=== PATIENT | female | born 1955 ===

== ENCOUNTER 2017-04-23 21:28 | Observation (INO) | payer MEDICAID ==
[2017-04-23 21:47] VITALS: BMI 43.7
[2017-04-23] MEDS ORDERED: Sodium Chloride 0.9% 1,000 ML IV STA (21:59)
--- NOTE | 2017-04-23 22:05 | ED PDOC ---
Arrival/HPI - General Chief Complaint: Back Pain Time Seen by Provider: 04/23/17 21:47 Historian: Patient - History of Present Illness Narrative History of Present Illness (Text): 04/23/17 21:59 Nola Castaneda is a 61 year old female, with a history of CAD, hypertension, uterine fibroids and hyperthyroidism, presents to the emergency department for evaluation of 3 day duration of abdominal pain associated with diarrhea and bilateral flank pain. Also reports of subjective feve and burning sensation while urinating. States that left abdominal and flank pain is greater than right side. Denies any vomiting. Denies headache, dizziness, chest pain, shortness of breath, or any other complaints at this time. PMD: Time/Duration: < week (3 day ) Symptom Onset: Gradual Symptom Course: Worsening Severity Level: Mild Activities at Onset: Light Context: Home Past Medical History - Provider Review Nursing Documentation Reviewed: Yes - Infectious Disease Hx of Infectious Diseases: None - Tetanus Immunization Tetanus Immunization: Unknown - Cardiac Hx Cardiac Disorders: Yes Hx Hypertension: Yes - Pulmonary Hx Respiratory Disorders: No - Neurological Hx Neurological Disorder: No - HEENT Hx HEENT Disorder: No - Renal Hx Renal Disorder: No - Endocrine/Metabolic Hx Endocrine Disorders: Yes Hx Hyperthyroidism: Yes - Hematological/Oncological Hx Blood Disorders: No - Integumentary Hx Dermatological Disorder: No - Musculoskeletal/Rheumatological Hx Musculoskeletal Disorders: No - Gastrointestinal Hx Gastrointestinal Disorders: No - Genitourinary/Gynecological Hx Genitourinary Disorders: No - Psychiatric Hx Psychophysiologic Disorder: Yes Hx Depression: Yes Hx Emotional Abuse: No Hx Physical Abuse: No Hx Substance Use: No - Surgical History Hx Tubal Ligation: Yes - Suicidal Assessment Feels Threatened In Home Enviroment: No Family/Social History - Physician Review Nursing Documentation Reviewed: Yes Family/Social History: No Known Family HX Smoking Status: Never Smoked Hx Alcohol Use: Yes Hx Substance Use: No Hx Substance Use Treatment: No Allergies/Home Meds Allergies/Adverse Reactions: Allergies No Known Allergies Allergy (Verified 02/21/16 09:11) Home Medications: Home Meds Medication Instructions Recorded Confirmed Gabapentin [Neurontin] 300 mg PO BID 04/23/17 04/23/17 Levothyroxine [Synthroid] 25 mcg PO DAILY 04/23/17 04/23/17 Lisinopril/Hydrochlorothiazide 1 tab PO DAILY 04/23/17 04/23/17 [Lisinopril-Hydrochlorothiazide 25 mg-20 mg] Multivitamin Therapeutic Tab 1 tab PO DAILY 04/23/17 04/23/17 [Thera Tab] Phentermine HCl [Phentermine HCl] 30 mg PO DAILY 04/23/17 04/23/17 Sertraline [Zoloft] 50 mg PO DAILY 04/23/17 04/23/17 Review of Systems - Physician Review All systems were reviewed & negative as marked: Yes - Review of Systems Constitutional: Fevers Respiratory: Normal. absent: SOB, Cough, Sputum Cardiovascular: absent: Chest Pain, Palpitations Gastrointestinal: Abdominal Pain (L>R), Diarrhea. absent: Nausea, Vomiting, Appetite Changes Genitourinary Female: Dysuria (burning sensation while urinating ). absent: Hematuria Musculoskeletal: Back Pain (b/l flank pain L>R ) Neurological: Normal. absent: Headache, Dizziness Psychiatric: Normal Physical Exam Vital Signs Reviewed: Yes Vital Signs Temp Pulse Resp BP Pulse Ox 04/23/17 23:54 117 H 16 120/53 L 97 04/23/17 21:47 100.1 F H 134 H 20 103/65 96 Temperature: Febrile Blood Pressure: Normal Pulse: Tachycardic Respiratory Rate: Normal Appearance: Positive for: Well-Appearing, Non-Toxic, Comfortable Pain Distress: None Mental Status: Positive for: Alert and Oriented X 3 - Systems Exam Head: Present: Atraumatic, Normocephalic Pupils: Present: PERRL Conjunctiva: Present: Normal Mouth: Present: Moist Mucous Membranes Respiratory/Chest: Present: Clear to Auscultation, Good Air Exchange. No: Respiratory Distress, Accessory Muscle Use Cardiovascular: Present: Normal S1, S2, Tachycardic. No: Murmurs Abdomen: Present: Tenderness (suprapubic tenderness, Left abd > right abd ), Normal Bowel Sounds. No: Distention, Peritoneal Signs, Rebound, Guarding Back: Present: CVA Tenderness (Left CVA ). No: Midline Tenderness, Paraspinal Tenderness Upper Extremity: Present: Normal Inspection. No: Cyanosis, Edema Lower Extremity: Present: Normal Inspection. No: Edema Neurological: Present: GCS=15, CN II-XII Intact, Speech Normal Skin: Present: Warm, Dry, Normal Color. No: Rashes Psychiatric: Present: Alert, Oriented x 3, Normal Insight, Normal Concentration Medical Decision Making ED Course and Treatment: 04/23/17 22:07 Impression: A 61 year old female who presents to emergency department for abdominal pain and flank pain associated with dysuria for past 3 days. Differential Diagnosis include but are not limited to: diverticulitis vs. appendicitis vs. pyelo Plan: -- Labs -- Toradol -- IV fluids -- Urine culture -- Urinalysis -- Reassess and disposition Progress Notes: 04/23/17 22:32 04/23/17 23:11 Labs resulted and show normal wbc, lactate and creatinine. However ua shows blood, large leukocytes and tntc wbc. Concerning for infected stone. Ordered ct abd/pelvis without contrast to evaluate further. 04/24/17 00:15 CT abdomen pelvis results reviewed, read by Isadora Pineda MD: IMPRESSION: Mild left-sided hydroureteronephrosis extending to the left ureterovesicular junction where a 2 mm stone is suspected. 04/24/17 00:23 Patient persistently tachycardic and febrile on arrival. Still in pain. Presentation consistent with infected stone. Dr. Drew requesting hospitalist admission. Will transfer to [facility] observation with urology on consult. - Lab Interpretations Lab Results: 04/23/17 22:30 04/23/17 22:30 Lab Results 04/23/17 22:30: Sodium 140, Chloride 101, Potassium 3.9, Carbon Dioxide 31, Anion Gap 12, BUN 20, Creatinine 1.0, Est GFR ( Amer) > 60, Est GFR (Non- Af Amer) 57, Random Glucose 119 H, Calcium 9.3, Total Bilirubin 0.7, AST 21, ALT 31, Alkaline Phosphatase 112, Total Protein 7.0, Albumin 3.8, Globulin 3.2, Albumin/Globulin Ratio 1.2, Lipase 57 04/23/17 22:30: pO2 47, VBG pH 7.39, VBG pCO2 57.0, VBG HCO3 34.5 H, VBG Total CO2 36.2 H, VBG O2 Sat (Calc) 85.1 H, VBG Base Excess 7.6 H, VBG Potassium 4.0, Sodium 141.0, Chloride 106.0, Glucose 129 H, Lactate 1.3, FiO2 21.0, Venous Blood Potassium 4.0 04/23/17 22:30: Urine Color Yellow, Urine Appearance Slight-cloudy, Urine pH 6.5 , Ur Specific [place] 1.010, Urine Protein Trace H, Urine Glucose (UA) Negative , Urine Ketones Negative, Urine Blood Moderate H, Urine Nitrate Negative, Urine Bilirubin Negative, Urine Urobilinogen 0.2, Ur Leukocyte Esterase Large H, Urine RBC 10 - 15, Urine WBC Tntc, Ur Epithelial Cells 4 - 5, Urine Bacteria Few 04/23/17 22:30: WBC 7.0, RBC 3.52, Hgb 11.0 L, Hct 32.3 L, MCV 91.8, MCH 31.3, MCHC 34.1, RDW 13.2, Plt Count 167, MPV 11.2 H, Gran % 87.0 H, Lymph % (Auto) 8.2 L, [place] % (Auto) 3.0, Eos % (Auto) 1.7, Baso % (Auto) 0.1, Gran # 6.08, Lymph # 0.6 L, [place] # 0.2, Eos # 0.1, Baso # 0.01 I have reviewed the lab results: Yes - RAD Interpretation Narrative RAD Interpretations (Text): EXAM: CT Abdomen and Pelvis Without Intravenous Contrast, read by Isadora Pineda MD FINDINGS: Lower thorax: The bilateral lung bases are clear. ABDOMEN: Liver: No acute findings Gallbladder and bile ducts: No acute finding. No calcified stones. No intra- extrahepatic biliary ductal dilation. Pancreas: Limited evaluation secondary to the lack of intravenous contrast. Spleen: No acute findings. Adrenals: No acute findings. Kidneys and ureters: Mild left-sided hydroureteronephrosis extending to the left ureterovesicular junction where a 2 mm stone is suspected. PELVIS: Bladder: No acute findings. Reproductive: No acute findings. Appendix: The appendix is of normal-caliber (series 2, image 1:15) ABDOMEN and PELVIS: Stomach and bowel: No acute findings. Peritoneum: No acute findings. Lymph nodes: Limited evaluation without intravenous contrast. Vasculature: No aortic aneurysm. Bones: No acute fracture. IMPRESSION: Mild left-sided hydroureteronephrosis extending to the left ureterovesicular junction where a 2 mm stone is suspected. Radiology Orders: 04/23/17 23:08 ABD & PELVIS W/O PO OR IV CONT [CT] [employer]: Radiologist - Medication Orders Current Medication Orders: Levofloxacin/Dextrose (Levaquin 750mg) 750 mg in 150 mls @ 100 mls/hr IVPB STAT STA Stop: 04/24/17 00:42 Last Admin: 04/23/17 23:24 Dose: 100 mls/hr Discontinued Medications Sodium Chloride (Sodium Chloride 0.9%) 1,000 mls @ 999 mls/hr IV .Q1H1M STA Stop: 04/23/17 22:59 Last Admin: 04/23/17 22:42 Dose: 999 mls/hr Ketorolac Tromethamine (Toradol) 30 mg IVP STAT STA Stop: 04/23/17 22:00 Last Admin: 04/23/17 22:42 Dose: 30 mg Morphine Sulfate (Morphine) 4 mg IVP STAT STA Stop: 04/24/17 00:06 - Scribe Statement The provider has reviewed the documentation as recorded by the Scribe Nia Peña Provider Attestation: khalif Provider Scribe Attestation: All medical record entries made by the Scribe were at my direction and personally dictated by me. I have reviewed the chart and agree that the record accurately reflects my personal performance of the history, physical exam, medical decision making, and the department course for this patient. I have also personally directed, reviewed, and agree with the discharge instructions and disposition. Disposition/Present on Arrival - Present on Arrival Any Indicators Present on Arrival: No History of DVT/PE: No History of Uncontrolled Diabetes: No Urinary Catheter: No History of Decub. Ulcer: No History Surgical Site Infection Following: None - Disposition Have Diagnosis and Disposition been Completed?: Yes Diagnosis: Hydroureteronephrosis Disposition: HOSPITALIZED Disposition Time: 00:24 Patient Plan: Observation Patient Problems: Current Active Problems Problem Status Onset Hydroureteronephrosis Acute Condition: FAIR Referrals: Pamela Garcia DO [Primary Care Provider] - Follow up with primary
[2017-04-23 22:41] LABS: ADD MANUAL DIFF? NO
[2017-04-23 22:51] LABS: PH,URINE 6.5 (4.7-8.0); URINE BILIRUBIN NEGATIVE (NEGATIVE); URINE BLOOD MODERATE (NEGATIVE); URINE GLUCOSE (UA) NEGATIVE (NEGATIVE); URINE KETONE NEGATIVE (NEGATIVE); URINE LEUKOCYTE ESTERASE LARGE Leu/uL (NEGATIVE); URINE PROTEIN TRACE mg/dL (<30 mg/dL); URINE UROBILINOGEN 0.2 E.U./dL (<1 E.U./dL)
[2017-04-23 22:52] LABS: URINE APPEARANCE SLIGHT-CLOUDY (CLEAR); URINE COLOR YELLOW (YELLOW)
[2017-04-23 22:53] LABS: BASO # 0.01 K/mm3 (0.0-2.0); BASO % 0.1 % (0.0-3.0); EOS # 0.1 (0.0-0.7); EOS % 1.7 % (1.5-5.0); GRAN # 6.08 (1.4-6.5); HEMATOCRIT 32.3 % (36.0-48.0); LYMPH # 0.6 (1.2-3.4); LYMPH % 8.2 % (22.0-35.0); MEAN CELL VOLUME 91.8 fL (80.0-105.0); MEAN CORPUSCULAR HEMOGLOBIN 31.3 pg (25.0-35.0); MEAN CORPUSCULAR HGB CONC 34.1 g/dl (31.0-37.0); MEAN PLATELET VOLUME 11.2 fl (7.0-11.0); MONO # 0.2 (0.1-0.6); PLATELET COUNT 167 10^3/uL (120.0-450.0); RED CELL DISTRIBUTION WIDTH 13.2 % (11.5-14.5)
[2017-04-23 22:56] LABS: URINE WBC TNTC /hpf (0-6); VENOUS BLOOD GAS BASE EXCESS 7.6 mmol/L (0.0-2.0); VENOUS BLOOD PH 7.39 (7.32-7.43)
[2017-04-23 22:57] LABS: URINE BACTERIA FEW (NEG)
[2017-04-23 23:02] LABS: ALB/GLOB RATIO 1.2 (1.1-1.8); ALKALINE PHOSPHATASE 112 U/L (38-133); ALT/SGPT 31 U/L (7-56); AST/SGOT 21 U/L (15-39); BILIRUBIN,TOTAL 0.7 mg/dL (0.2-1.3); BLOOD UREA NITROGEN 20 mg/dL (7-21); CALCIUM 9.3 mg/dL (8.4-10.5); CARBON DIOXIDE 31 mmol/L (21-33); CHLORIDE 101 mmol/L (98-107); GFR AFRICAN-AMERICAN > 60; GLUCOSE,RANDOM 119 mg/dL (70-110); LIPASE 57 U/L (23-300); POTASSIUM 3.9 mmol/L (3.6-5.0); SODIUM 140 mmol/L (132-148)
[2017-04-23] MEDS ORDERED: levoFLOXacin 750 mg in D5W 750 MG/150 ML BAG IVPB STA (23:13)
[2017-04-24] MEDS ORDERED: Morphine 4 mg/ml ISec IVP STA (00:05)
--- NOTE | 2017-04-24 00:12 | CT ---
EXAM: CT Abdomen and Pelvis Without Intravenous Contrast CLINICAL HISTORY: 61 years old, female; Pain; Abdominal pain; Localized; Left lower quadrant (llq); Prior surgery; Surgery type: Tubal ligation; Additional info: Hematuria, flank pain TECHNIQUE: Axial computed tomography images of the abdomen and pelvis without intravenous contrast. This CT exam was performed using one or more of the following dose reduction techniques: automated exposure control, adjustment of the mA and/or kV according to patient size, and/or use of iterative reconstruction technique. Coronal and sagittal reformatted images were created and reviewed. COMPARISON: No relevant prior studies available. FINDINGS: Lower thorax: The bilateral lung bases are clear. ABDOMEN: Liver: No acute findings Gallbladder and bile ducts: No acute finding. No calcified stones. No intra-extrahepatic biliary ductal dilation. Pancreas: Limited evaluation secondary to the lack of intravenous contrast. Spleen: No acute findings. Adrenals: No acute findings. Kidneys and ureters: Mild left-sided hydroureteronephrosis extending to the left ureterovesicular junction where a 2 mm stone is suspected. PELVIS: Bladder: No acute findings. Reproductive: No acute findings. Appendix: The appendix is of normal-caliber (series 2, image 1:15) ABDOMEN and PELVIS: Stomach and bowel: No acute findings. Peritoneum: No acute findings. Lymph nodes: Limited evaluation without intravenous contrast. Vasculature: No aortic aneurysm. Bones: No acute fracture. IMPRESSION: Mild left-sided hydroureteronephrosis extending to the left ureterovesicular junction where a 2 mm stone is suspected.
[2017-04-24] MEDS ORDERED: Sodium Chloride 0.9% 1,000 ML IV SCH (01:30)
--- NOTE | 2017-04-24 02:07 | CP.PCM.HP ---
<Nikkie Woo - Last Filed: 04/24/17 05:58> History of Present Illness - History of Present Illness History of Present Illness: PGY-1 H&P 61 yo female with PMH of CAD, HTN, hyperthyroidism presented to ED with abdominal and flank pain for the past 3 days. Patient states that the pain has become progressivly worse. The abdominal pain is located hypogastric region. The flank pain is greater on the left then the right, she has never had similar pain before. She took tylenol for the pain but did not help. She states that she has pain with urination but denies hematuria. She reports subjective fever at home, general weakness, fatigue and nausea without vomiting. She has cough with clear phlegm production due to her HTN medication. She reports chronic back pain. Denies chest pain, sob, dizziness. PMH: CAD, HTN, hyperthyroidism PSH: hysterectomy social hx: denies smoking, alcohol use, illicit drug use fam hx: father- stroke allergy: NKDA PMD: Dr. Santiago Present on Admission - Present on Admission Any Indicators Present on Admission: No Review of Systems - Constitutional Constitutional: Fatigue, Fever, Headache. absent: Chills - EENT Nose/Mouth/Throat: absent: Nasal Congestion, Nasal Discharge, Sore Throat - Cardiovascular Cardiovascular: absent: Chest Pain, Chest Pain with Activity, Dyspnea, Syncope - Respiratory Respiratory: Cough. absent: Dyspnea, Hemoptysis - Gastrointestinal Gastrointestinal: Abdominal Pain, Constipation, Nausea. absent: Diarrhea, Vomiting - Genitourinary Genitourinary: Dysuria, Flank Pain. absent: Hematuria - Musculoskeletal Musculoskeletal: absent: Arthralgias, Myalgias, Numbness, Tingling - Integumentary Integumentary: absent: Rash, Skin Ulcer, Swelling, Wounds - Neurological Neurological: Headaches, Weakness. absent: Dizziness, Numbness, Focal Weakness , Syncope, Tingling - Hematologic/Lymphatic Hematologic: absent: Easy Bleeding, Easy Bruising Past Patient History - Infectious Disease Hx of Infectious Diseases: None - Tetanus Immunizations Tetanus Immunization: Unknown - Past Social History Smoking Status: Never Smoked Alcohol: None Drugs: Denies - CARDIAC Hx Cardiac Disorders: Yes Hx Hypertension: Yes - PULMONARY Hx Respiratory Disorders: No - NEUROLOGICAL Hx Neurological Disorder: No - HEENT Hx HEENT Problems: No - RENAL Hx Chronic Kidney Disease: No - ENDOCRINE/METABOLIC Hx Endocrine Disorders: Yes Hx Hyperthyroidism: Yes - HEMATOLOGICAL/ONCOLOGICAL Hx Blood Disorders: No - INTEGUMENTARY Hx Dermatological Problems: No - MUSCULOSKELETAL/RHEUMATOLOGICAL Hx Musculoskeletal Disorders: No - GASTROINTESTINAL Hx Gastrointestinal Disorders: No - GENITOURINARY/GYNECOLOGICAL Hx Genitourinary Disorders: No - PSYCHIATRIC Hx Psychophysiologic Disorder: Yes Hx Depression: Yes Hx Emotional Abuse: No Hx Physical Abuse: No Hx Substance Use: No - SURGICAL HISTORY Hx Tubal Ligation: Yes Meds Allergies/Adverse Reactions: Allergies Allergy/AdvReac Type Severity Reaction Status Date / Time No Known Allergies Allergy Verified 02/21/16 09:11 Physical Exam - Constitutional Appears: Well, No Acute Distress - Head Exam Head Exam: ATRAUMATIC, NORMOCEPHALIC - Eye Exam Eye Exam: EOMI, Normal appearance - ENT Exam ENT Exam: Mucous Membranes Moist - Respiratory Exam Respiratory Exam: Clear to Auscultation Bilateral, NORMAL BREATHING PATTERN. absent: Decreased Breath Sounds, Rales, Rhonchi, Wheezes, Respiratory Distress - Cardiovascular Exam Cardiovascular Exam: Tachycardia, REGULAR RHYTHM, +S1, +S2. absent: Diastolic murmur, Systolic Murmur - GI/Abdominal Exam GI & Abdominal Exam: Normal Bowel Sounds, Soft, Tenderness. absent: Distended, Firm, Guarding - Back Exam Back exam: NORMAL INSPECTION. absent: CVA tenderness (L), CVA tenderness (R), paraspinal tenderness, vertebral tenderness - Neurological Exam Neurological exam: Alert, Oriented x3 - Skin Skin Exam: Dry, Intact, Normal Color, Warm Results - Vital Signs Recent Vital Signs: Last Vital Signs Temp 99.6 F 04/24/17 01:31 Pulse 108 H 04/24/17 01:31 Resp 17 04/24/17 01:31 BP 100/51 L 04/24/17 01:31 Pulse Ox 96 04/24/17 01:31 - Labs Result Diagrams: 04/23/17 22:30 04/23/17 22:30 Assessment & Plan - Assessment and Plan (Free Text) Assessment: 61 yo female with PMH of CAD, HTN, hyperthyroidism admitted for hydrourteronephrosis and UTI. CT abd/pel showed mild left sided hydroureteronephrosis with suspected 2mm stone. Plan: 1. hydrourteronephrosis and UTI - CT abd/pel showed mild left sided hydroureteronephrosis with suspected 2mm stone - UA positive - urine cultures - procalcitonin - urology consult - levofloxacin - flomax 0.4 mg daily - toradol PRN pain - IVF NS @ 125 2. HTN - hold home HTN meds - clonidine 0.1 mg PRN SBP> 170 - cont to monitor 3. hyperthyroidism - synthriod 25mcg daily ppx DVT- SCDs GI- protonix <Nehal LOCKHART,Tucker - Last Filed: 04/26/17 09:09> Results - Vital Signs Recent Vital Signs: Last Vital Signs Temp 98.5 F 04/25/17 15:09 Pulse 94 H 04/25/17 16:54 Resp 20 04/25/17 16:54 BP 116/73 04/25/17 16:54 Pulse Ox 98 04/25/17 16:54 - Labs Result Diagrams: 04/25/17 07:15 04/25/17 07:15 Attending/Attestation - Attestation I have personally seen and examined this patient.: Yes I have fully participated in the care of the patient.: Yes I have reviewed all pertinent clinical information: Yes Notes (Text): 04/26/17 09:08 -I agree with the above H&P completed by the resident physician.
[2017-04-24 06:53] LABS: ADD MANUAL DIFF? NO
[2017-04-24 07:27] LABS: BASO # 0.02 K/mm3 (0.0-2.0); BASO % 0.4 % (0.0-3.0); EOS # 0.1 (0.0-0.7); EOS % 1.7 % (1.5-5.0); GRAN % 74.7 % (50.0-68.0); HEMATOCRIT 28.8 % (36.0-48.0); LYMPH # 1.1 (1.2-3.4); LYMPH % 20.4 % (22.0-35.0); MEAN CORPUSCULAR HGB CONC 33.7 g/dl (31.0-37.0); MEAN PLATELET VOLUME 11.2 fl (7.0-11.0); MONO # 0.2 (0.1-0.6); MONO % 2.8 % (1.0-6.0); PLATELET COUNT 163 10^3/uL (120.0-450.0); RED CELL DISTRIBUTION WIDTH 13.4 % (11.5-14.5); WHITE BLOOD COUNT 5.4 10^3/ul (4.5-11.0)
[2017-04-24 07:32] LABS: ALB/GLOB RATIO 1.1 (1.1-1.8); ALKALINE PHOSPHATASE 81 U/L (38-133); ALT/SGPT 24 U/L (7-56); AST/SGOT 21 U/L (15-39); BILIRUBIN,TOTAL 0.4 mg/dL (0.2-1.3); BLOOD UREA NITROGEN 18 mg/dL (7-21); CALCIUM 8.4 mg/dL (8.4-10.5); CARBON DIOXIDE 31 mmol/L (21-33); CHLORIDE 104 mmol/L (98-107); GFR AFRICAN-AMERICAN > 60; GLUCOSE,RANDOM 109 mg/dL (70-110); POTASSIUM 3.9 mmol/L (3.6-5.0); SODIUM 141 mmol/L (132-148); TOTAL PROTEIN 5.7 g/dL (5.8-8.3)
[2017-04-24] MEDS ORDERED: Sodium Chloride 0.9% 500 ML IV STA (08:22)
[2017-04-24] MEDS ORDERED: Morphine 2 mg/ml ISec IVP STA (08:41)
[2017-04-24] MEDS ORDERED: Multivitamin Therapeutic Tab PO SCH (10:00)
[2017-04-24] MEDS: Levothyroxine 25 MCG TAB PO SCH (10:05)
[2017-04-24] MEDS: Pantoprazole 40 mg EC Tab PO SCH (10:05)
[2017-04-24] MEDS ORDERED: Iohexol 240 (50 ml) ONE (11:21)
[2017-04-24] MEDS ORDERED: Propofol 10 mg/ml Inj (20 ML) ONE (12:58)
[2017-04-24] MEDS ORDERED: Lidocaine 1% Inj (20ml) ONE (12:58)
[2017-04-24] MEDS ORDERED: cefTRIAXone (Rocephin) 1 gm Inj ONE (13:15)
[2017-04-24] MEDS ORDERED: HYDROmorphone 0.5 mg/0.5 ml ISec IVP PRN (13:55)
[2017-04-24] MEDS ORDERED: Lactated Ringer's 1,000 ML IV SCH (13:55)
--- NOTE | 2017-04-24 14:46 | OP ---
PROCEDURE DATE: 04/24/2017 PREOPERATIVE DIAGNOSES: Obstructing left ureteral stone with fever. POSTOPERATIVE DIAGNOSES: Obstructing left ureteral stone with fever. PROCEDURE: Cystoscopy, insertion of a left ureteral stent, left retrograde pyelogram. ATTENDING SURGEON: Akhil Bethea MD ANESTHESIA: General. SPECIMENS: There were none. DRAINS: A 6 x 22 left ureteral stent. COMPLICATIONS: There were none. OPERATIVE FINDINGS: After informed consent was obtained, the patient was taken to the operating room and placed on the operating table. Anesthesia was administered. The patient was then placed in a d orsal lithotomy position and prepped and draped in the usual sterile fashion. A 21-Macedonian cystoscope was inserted into the patient's bladder and a full survey inspection was performed. There were no s tones, papillary tumors or foreign bodies noted. Both ureteral orifices were visualized. The left o rifice appeared tight and edematous. The right orifice was tight appearing, but was not heaped up as the left orifice was. At this point, a 5 Macedonian Pollack catheter was introduced through the cystosc ope and attempts were made to catheterize the left orifice, which were unsuccessful. The Pollack cat heter was changed to a Fiore catheter and again attempts were unsuccessful. A Sensor wire was at tempted. However, it could not be inserted into the orifice. However, a 0.035 angle tip Glidewire w as able to be passed with some difficulty into the orifice and advanced up the ureter under fluorosco pic guidance. The open-ended ureteral catheter was then able to be advanced over the wire and into t he mid ureter. When the catheter was in the mid ureter, the wire was removed and contrast was instil led into the system. The retrograde pyelogram showed a normal caliber upper ureter. There was no ob vious hydronephrosis noted. There was a mobile filling defect noted, which was possibly the ureteral calculus which was noted on CT scan or possibly an air bubble. As patient had a CT scan showing an obstructing left ureteral stone with mild left hydro and had a fever earlier today, decision was made to place a stent. The Sensor wire was now able to be passed without difficulty through the ureteral catheter and up the ureter until it coiled in the upper collecting system on fluoroscopy. The urete ral catheter was then removed and a 6 x 22 ureteral stent was obtained. It was passed through the cy stoscope over the wire and into the left ureter. The ureteral stent was then advanced until it was i n at the appropriate position. When the stent was in proper position, the guidewire was removed. A coil was seen in the renal pelvis on fluoroscopy. A coil was seen in the bladder on cystoscopy. The re was a moderate amount of dark turbid urine noted exiting from the stent. At this point, the proce dure was completed, the bladder was drained, the cystoscope was removed. The patient tolerated the p rocedure well. She was taken to the recovery room awake and in stable condition. Akhil Bethea MD cc: [phone] TT: 04/24/2017 14:46:27 en
--- NOTE | 2017-04-24 18:17 | RAD ---
PROCEDURE: Fluoroscopy up to 1 hr. HISTORY: RETROGRADE PYELOGRAM / STENT INSERTION (LEFT) COMPARISON: None TECHNIQUE: Standard protocol for this study/examination. FINDINGS: Total fluoroscopic time (continuous mode) utilized during the procedure: 1 minutes 25 seconds fluoro time. Double-J stent catheter inserted on left. IMPRESSION: Less than 1 hr fluoroscopic time utilized during performance of the procedure.
--- NOTE | 2017-04-24 19:06 | CARD ---
APPROVED REPORT EKG Measurement Heart [id number] <Conclusion> Sinus tachycardia Otherwise normal ECG
--- NOTE | 2017-04-24 19:53 | PN ---
DATE: 04/24/2017 SUBJECTIVE: The patient was seen postoperatively in the recovery room. She had a left stent placed previously today. She has been afebrile and is having mild discomfort. The plan is to continue the patient on observation overnight. She received intravenous antibiotics. She will be started on a di et. If the patient is stable tomorrow with no further fevers, she can be discharged home on oral ant ibiotics. The patient is to follow up with me in the office in 2 weeks to schedule stent removal. Akhil Bethea MD cc: [phone] TT: 04/24/2017 19:52:09 Confirmation # [id number] Dictation # [id number]
[2017-04-25 07:36] LABS: ADD MANUAL DIFF? NO
[2017-04-25 07:41] VITALS: RESP 20; TEMP 98.5; O2SAT 98
[2017-04-25 07:45] LABS: BASO # 0.01 K/mm3 (0.0-2.0); BASO % 0.1 % (0.0-3.0); EOS # 0.1 (0.0-0.7); EOS % 0.8 % (1.5-5.0); GRAN # 6.09 (1.4-6.5); GRAN % 79.3 % (50.0-68.0); HEMATOCRIT 28.3 % (36.0-48.0); LYMPH # 0.9 (1.2-3.4); LYMPH % 12.1 % (22.0-35.0); MEAN CELL VOLUME 90.7 fL (80.0-105.0); MEAN CORPUSCULAR HEMOGLOBIN 30.4 pg (25.0-35.0); MEAN CORPUSCULAR HGB CONC 33.6 g/dl (31.0-37.0); MEAN PLATELET VOLUME 11.6 fl (7.0-11.0); MONO # 0.6 (0.1-0.6); MONO % 7.7 % (1.0-6.0); PLATELET COUNT 134 10^3/uL (120.0-450.0); RED CELL DISTRIBUTION WIDTH 13.5 % (11.5-14.5); WHITE BLOOD COUNT 7.7 10^3/ul (4.5-11.0)
[2017-04-25 07:50] LABS: ALKALINE PHOSPHATASE 86 U/L (38-133); ALT/SGPT 28 U/L (7-56); AST/SGOT 22 U/L (15-39); BILIRUBIN,TOTAL 0.4 mg/dL (0.2-1.3); BLOOD UREA NITROGEN 17 mg/dL (7-21); CALCIUM 8.4 mg/dL (8.4-10.5); CARBON DIOXIDE 29 mmol/L (21-33); CHLORIDE 105 mmol/L (98-107); GFR AFRICAN-AMERICAN > 60; GLUCOSE,RANDOM 107 mg/dL (70-110); POTASSIUM 3.5 mmol/L (3.6-5.0); SODIUM 139 mmol/L (132-148); TOTAL PROTEIN 5.9 g/dL (5.8-8.3)
[2017-04-25] MEDS: Levothyroxine 25 MCG TAB PO SCH (10:06)
[2017-04-25] MEDS: Pantoprazole 40 mg EC Tab PO SCH (10:06)
--- NOTE | 2017-04-25 14:52 | CP.PCM.DIS ---
<Lizbeth Leung - Last Filed: 04/25/17 15:32> Provider - Provider Date of Admission: 04/24/17 00:24 Attending physician: Paula Brody MD Primary care physician: Pamela Garcia DO Consults: Dr. Joanne Bethea Time Spent in preparation of Discharge (in minutes): 35 Hospital Course - Lab Results Lab Results: Most Recent Lab Values WBC 7.7 10^3/ul (4.5-11.0) D 04/25/17 07:15 RBC 3.12 10^6/uL (3.5-6.1) L 04/25/17 07:15 Hgb 9.5 gm/dL (12.0-16.0) L 04/25/17 07:15 Hct 28.3 % (36.0-48.0) L 04/25/17 07:15 MCV 90.7 fL (80.0-105.0) 04/25/17 07:15 MCH 30.4 pg (25.0-35.0) 04/25/17 07:15 MCHC 33.6 g/dl (31.0-37.0) 04/25/17 07:15 RDW 13.5 % (11.5-14.5) 04/25/17 07:15 Plt Count 134 10^3/uL (120.0-450.0) 04/25/17 07:15 MPV 11.6 fl (7.0-11.0) H 04/25/17 07:15 Gran % 79.3 % (50.0-68.0) H 04/25/17 07:15 Lymph % (Auto) 12.1 % (22.0-35.0) L 04/25/17 07:15 Crawford % (Auto) 7.7 % (1.0-6.0) H 04/25/17 07:15 Eos % (Auto) 0.8 % (1.5-5.0) L 04/25/17 07:15 Baso % (Auto) 0.1 % (0.0-3.0) 04/25/17 07:15 Gran # 6.09 (1.4-6.5) 04/25/17 07:15 Lymph # 0.9 (1.2-3.4) L 04/25/17 07:15 Crawford # 0.6 (0.1-0.6) 04/25/17 07:15 Eos # 0.1 (0.0-0.7) 04/25/17 07:15 Baso # 0.01 K/mm3 (0.0-2.0) 04/25/17 07:15 pO2 47 mm/Hg (30-55) 04/23/17 22:30 VBG pH 7.39 (7.32-7.43) 04/23/17 22:30 VBG pCO2 57.0 (40-60) 04/23/17 22:30 VBG HCO3 34.5 mmol/l (21-28) H 04/23/17 22:30 VBG Total CO2 36.2 mmol.L (22-28) H 04/23/17 22:30 VBG O2 Sat (Calc) 85.1 % (40-65) H 04/23/17 22:30 VBG Base Excess 7.6 mmol/L (0.0-2.0) H 04/23/17 22:30 VBG Potassium 4.0 mmol/L (3.6-5.2) 04/23/17 22:30 Sodium 141.0 mmol/L (132-148) 04/23/17 22:30 Chloride 106.0 mmol/L (98-107) 04/23/17 22:30 Glucose 129 mg/dl (65-105) H 04/23/17 22:30 Lactate 1.3 mmol/L (0.7-2.1) 04/23/17 22:30 FiO2 21.0 % 04/23/17 22:30 Sodium 139 mmol/L (132-148) 04/25/17 07:15 Potassium 3.5 mmol/L (3.6-5.0) L 04/25/17 07:15 Chloride 105 mmol/L (98-107) 04/25/17 07:15 Carbon Dioxide 29 mmol/L (21-33) 04/25/17 07:15 Anion Gap 9 (10-20) L 04/25/17 07:15 BUN 17 mg/dL (7-21) 04/25/17 07:15 Creatinine 1.0 mg/dL (0.5-1.4) 04/25/17 07:15 Est GFR ( Amer) > 60 04/25/17 07:15 Est GFR (Non-Af Amer) 57 04/25/17 07:15 Random Glucose 107 mg/dL (70-110) 04/25/17 07:15 Calcium 8.4 mg/dL (8.4-10.5) 04/25/17 07:15 Total Bilirubin 0.4 mg/dL (0.2-1.3) 04/25/17 07:15 AST 22 U/L (15-39) 04/25/17 07:15 ALT 28 U/L (7-56) 04/25/17 07:15 Alkaline Phosphatase 86 U/L (38-133) 04/25/17 07:15 Total Protein 5.9 g/dL (5.8-8.3) 04/25/17 07:15 Albumin 3.0 g/dL (3.0-4.8) 04/25/17 07:15 Globulin 2.9 gm/dL 04/25/17 07:15 Albumin/Globulin Ratio 1.0 (1.1-1.8) L 04/25/17 07:15 Lipase 57 U/L (23-300) 04/23/17 22:30 Procalcitonin 0.96 NG/ML (0.19-0.49) H 04/23/17 22:30 Venous Blood Potassium 4.0 mmol/L (3.6-5.2) 04/23/17 22:30 Urine Color Yellow (YELLOW) 04/23/17 22:30 Urine Appearance Slight-cloudy (CLEAR) 04/23/17 22:30 Urine pH 6.5 (4.7-8.0) 04/23/17 22:30 Ur Specific Sims 1.010 (1.005-1.035) 04/23/17 22:30 Urine Protein Trace mg/dL (<30 mg/dL) H 04/23/17 22:30 Urine Glucose (UA) Negative mg/dL (NEGATIVE) 04/23/17 22:30 Urine Ketones Negative mg/dL (NEGATIVE) 04/23/17 22:30 Urine Blood Moderate (NEGATIVE) H 04/23/17 22:30 Urine Nitrate Negative (NEGATIVE) 04/23/17 22:30 Urine Bilirubin Negative (NEGATIVE) 04/23/17 22:30 Urine Urobilinogen 0.2 E.U./dL (<1 E.U./dL) 04/23/17 22:30 Ur Leukocyte Esterase Large Vicente/uL (NEGATIVE) H 04/23/17 22:30 Urine RBC 10 - 15 /hpf (0-2) 04/23/17 22:30 Urine WBC Tntc /hpf (0-6) 04/23/17 22:30 Ur Epithelial Cells 4 - 5 /hpf (0-5) 04/23/17 22:30 Urine Bacteria Few (NEG) 04/23/17 22:30 - Hospital Course Hospital Course: 61 yo female with PMH of CAD, HTN, hyperthyroidism presented to ED with abdominal and flank pain for the past 3 days. Patient states that the pain has become progressivly worse. The abdominal pain is located hypogastric region. The flank pain is greater on the left then the right, she has never had similar pain before. She states that she has pain with urination but denies hematuria. CT abd/pel showed mild left sided hydroureteronephrosis with suspected 2mm stone. Transferred to med/surg for dx infected renal stone. On the floor, pt recieved IV NS, with resumption of home synthroid medication, IV abx and toradol prn for pain control. Pt had L ureteral pigtail stent placed by Dr. Bethea. Pt's flank pain improved and pt d/c home in stable condition with the following instructions: You are discharged home. Please follow-up with your primary care doctor within a week. Please see Dr. Bethea for stent removal in two weeks. Please continue home medications with a new prescription of levaquin 750mg by mouth daily for 5 days. You were advised of the possible Levaquin side effects of tendon/ligament injury and pain, and to contact your primary care physician if such symptoms start. For pain control, you are advised to take over the counter acetaminophen/ tylenol. Please return to the emergency department for worsening of symptoms. Discharge Exam - Additional Findings Additional findings: - Constitutional Appears: Well, No Acute Distress - Head Exam Head Exam: ATRAUMATIC, NORMOCEPHALIC - Eye Exam Eye Exam: EOMI, Normal appearance - ENT Exam ENT Exam: Mucous Membranes Moist - Respiratory Exam Respiratory Exam: Clear to Auscultation Bilateral, NORMAL BREATHING PATTERN. - Cardiovascular Exam Cardiovascular Exam: REGULAR RHYTHM, +S1, +S2. - GI/Abdominal Exam GI & Abdominal Exam: Normal Bowel Sounds, Soft, Tenderness. - Back Exam Back exam: NORMAL INSPECTION. absent: CVA tenderness (L), CVA tenderness (R) - Neurological Exam Neurological exam: Alert, Oriented x3 - Skin Skin Exam: Dry, Intact, Discharge Plan - Discharge Medications Prescriptions: levoFLOXacin [Levaquin] 750 mg PO DAILY #5 tab - Follow Up Plan Condition: STABLE Disposition: HOME/ ROUTINE Instructions: Kidney Stones (DC), Cystoscopy (DC), Heart Healthy Diet (DC), Urethral Stent Placement (DC) Additional Instructions: You are discharged home. Please follow-up with your primary care doctor within a week. Please see Dr. Bethea for stent removal in two weeks. Please continue home medications with a new prescription of levaquin 750mg by mouth daily for 5 days. You were advised of the possible levaquin side effects of tendon/ligament injury and pain, and to contact your primary care physician if symptoms start. For pain control, you are advised to take over the counter acetaminophen/ tylenol. Please return to the emergency department for worsening of symptoms. Referrals: Akhil Bethea MD [Staff Provider] - Pamela Garcia DO [Primary Care Provider] - <SureshTia - Last Filed: 04/26/17 11:16> Provider - Provider Date of Admission: 04/24/17 00:24 Attending physician: Paula Brody MD Primary care physician: Pamela Garcia DO Hospital Course - Lab Results Lab Results: Micro Results 04/24/17 16:30 Blood Blood Culture - Preliminary NO GROWTH AFTER 24 HOURS 04/24/17 16:15 Blood Blood Culture - Preliminary NO GROWTH AFTER 24 HOURS Most Recent Lab Values WBC 7.7 10^3/ul (4.5-11.0) D 04/25/17 07:15 RBC 3.12 10^6/uL (3.5-6.1) L 04/25/17 07:15 Hgb 9.5 gm/dL (12.0-16.0) L 04/25/17 07:15 Hct 28.3 % (36.0-48.0) L 04/25/17 07:15 MCV 90.7 fL (80.0-105.0) 04/25/17 07:15 MCH 30.4 pg (25.0-35.0) 04/25/17 07:15 MCHC 33.6 g/dl (31.0-37.0) 04/25/17 07:15 RDW 13.5 % (11.5-14.5) 04/25/17 07:15 Plt Count 134 10^3/uL (120.0-450.0) 04/25/17 07:15 MPV 11.6 fl (7.0-11.0) H 04/25/17 07:15 Gran % 79.3 % (50.0-68.0) H 04/25/17 07:15 Lymph % (Auto) 12.1 % (22.0-35.0) L 04/25/17 07:15 Crawford % (Auto) 7.7 % (1.0-6.0) H 04/25/17 07:15 Eos % (Auto) 0.8 % (1.5-5.0) L 04/25/17 07:15 Baso % (Auto) 0.1 % (0.0-3.0) 04/25/17 07:15 Gran # 6.09 (1.4-6.5) 04/25/17 07:15 Lymph # 0.9 (1.2-3.4) L 04/25/17 07:15 Crawford # 0.6 (0.1-0.6) 04/25/17 07:15 Eos # 0.1 (0.0-0.7) 04/25/17 07:15 Baso # 0.01 K/mm3 (0.0-2.0) 04/25/17 07:15 pO2 47 mm/Hg (30-55) 04/23/17 22:30 VBG pH 7.39 (7.32-7.43) 04/23/17 22:30 VBG pCO2 57.0 (40-60) 04/23/17 22:30 VBG HCO3 34.5 mmol/l (21-28) H 04/23/17 22:30 VBG Total CO2 36.2 mmol.L (22-28) H 04/23/17 22:30 VBG O2 Sat (Calc) 85.1 % (40-65) H 04/23/17 22:30 VBG Base Excess 7.6 mmol/L (0.0-2.0) H 04/23/17 22:30 VBG Potassium 4.0 mmol/L (3.6-5.2) 04/23/17 22:30 Sodium 141.0 mmol/L (132-148) 04/23/17 22:30 Chloride 106.0 mmol/L (98-107) 04/23/17 22:30 Glucose 129 mg/dl (65-105) H 04/23/17 22:30 Lactate 1.3 mmol/L (0.7-2.1) 04/23/17 22:30 FiO2 21.0 % 04/23/17 22:30 Sodium 139 mmol/L (132-148) 04/25/17 07:15 Potassium 3.5 mmol/L (3.6-5.0) L 04/25/17 07:15 Chloride 105 mmol/L (98-107) 04/25/17 07:15 Carbon Dioxide 29 mmol/L (21-33) 04/25/17 07:15 Anion Gap 9 (10-20) L 04/25/17 07:15 BUN 17 mg/dL (7-21) 04/25/17 07:15 Creatinine 1.0 mg/dL (0.5-1.4) 04/25/17 07:15 Est GFR ( Amer) > 60 04/25/17 07:15 Est GFR (Non-Af Amer) 57 04/25/17 07:15 Random Glucose 107 mg/dL (70-110) 04/25/17 07:15 Calcium 8.4 mg/dL (8.4-10.5) 04/25/17 07:15 Total Bilirubin 0.4 mg/dL (0.2-1.3) 04/25/17 07:15 AST 22 U/L (15-39) 04/25/17 07:15 ALT 28 U/L (7-56) 04/25/17 07:15 Alkaline Phosphatase 86 U/L (38-133) 04/25/17 07:15 Total Protein 5.9 g/dL (5.8-8.3) 04/25/17 07:15 Albumin 3.0 g/dL (3.0-4.8) 04/25/17 07:15 Globulin 2.9 gm/dL 04/25/17 07:15 Albumin/Globulin Ratio 1.0 (1.1-1.8) L 04/25/17 07:15 Lipase 57 U/L (23-300) 04/23/17 22:30 Procalcitonin 0.96 NG/ML (0.19-0.49) H 04/23/17 22:30 Venous Blood Potassium 4.0 mmol/L (3.6-5.2) 04/23/17 22:30 Urine Color Yellow (YELLOW) 04/23/17 22:30 Urine Appearance Slight-cloudy (CLEAR) 04/23/17 22:30 Urine pH 6.5 (4.7-8.0) 04/23/17 22:30 Ur Specific Sims 1.010 (1.005-1.035) 04/23/17 22:30 Urine Protein Trace mg/dL (<30 mg/dL) H 04/23/17 22:30 Urine Glucose (UA) Negative mg/dL (NEGATIVE) 04/23/17 22:30 Urine Ketones Negative mg/dL (NEGATIVE) 04/23/17 22:30 Urine Blood Moderate (NEGATIVE) H 04/23/17 22:30 Urine Nitrate Negative (NEGATIVE) 04/23/17 22:30 Urine Bilirubin Negative (NEGATIVE) 04/23/17 22:30 Urine Urobilinogen 0.2 E.U./dL (<1 E.U./dL) 04/23/17 22:30 Ur Leukocyte Esterase Large Vicente/uL (NEGATIVE) H 04/23/17 22:30 Urine RBC 10 - 15 /hpf (0-2) 04/23/17 22:30 Urine WBC Tntc /hpf (0-6) 04/23/17 22:30 Ur Epithelial Cells 4 - 5 /hpf (0-5) 04/23/17 22:30 Urine Bacteria Few (NEG) 04/23/17 22:30 Attending/Attestation - Attestation I have personally seen and examined this patient.: Yes I have fully participated in the care of the patient.: Yes I have reviewed all pertinent clinical information, including history, physical exam and plan: Yes Notes (Text): 04/26/17 11:15 Patient seen and examined with the resident. Translation used. Plan of care explained to the patient after review of vitals, labs and notes. Agree with the plan outlined above.
[2017-04-25 16:55] VITALS: BP 116/73; PULSE 94
[2017-04-25] MEDS ORDERED: levoFLOXacin 750 mg in D5W 150 ML BAG IVPB SCH (23:00)
== END 2017-04-25 16:55 | disposition home or self-care (01) ==
LOC: ED 21:28 → ERH 04-24 00:24 → 5RNO 04-24 02:00
PROVIDERS: ADMIT Internal Medicine; ATTEND Internal Medicine
DX: N20.1 Calculus of ureter (principal)
CPT/HCPCS: 36415; 52332; 74176; 76000; 80053; 81001; 82803; 83690; 84145; 85025; 87040; 87086; 87181; 93005; 96374; 99284; C1758; C1769; C1887; C2625; G0378; J0696; J1170; J1885; J2270; J2704; J3010; J7040; J7120; Q9966